=== PATIENT | female | born 1940 | race Caucasian/White ===

== ENCOUNTER 2016-10-16 07:53 | Outpatient (CLI) | payer MEDICARE, OTHER ==
[~2016-10-16] VITALS: Ht 167.6 cm; Wt 53.6 kg
--- NOTE | ~2016-10-16 | OP ---
PATIENT NAME: YUDY STUBBS MEDICAL RECORD: [id number] :38 LOCATION:D.CAT ADMISSION DATE: SURGEON: SANDRINE LOFTON MD DATE OF OPERATION: 10/16/2016 PROCEDURES: 1. Stent placement SFA, left. 2. FORKLIFT TRUCK OPERATOR SFA, left. 3. Aortofemoral runoff. 4. Abdominal aortography. INDICATION: Claudication and peripheral vascular disease. PROCEDURE IN DETAIL: After informed consent was obtained and after a detailed explanation of the risks, benefits as well as alternative therapies, the patient elected to proceed with angiogram and angioplasty. The right femoral area was prepped and draped in normal sterile fashion. The right femoral artery was cannulated via modified Seldinger technique with placement of a 6-Welsh lhckbg-yow-fyhf sheath. All catheters exchanged through this sheath. FINDINGS: Abdominal aortography was performed. The catheter was pulled down for aortofemoral runoff. Abdominal aortography reveals no significant abdominal aortic ____ no renal artery stenosis. RIGHT SIDE: A. Iliac: The common internal and external iliacs have moderate irregularities, but no flow-limiting stenosis. B. Femoral system: The common superficial and deep femoral have moderate irregularities, but no flow-limiting stenosis. C. Popliteal and infrapopliteal vessels are patent with good 3-vessel runoff to the foot. LEFT SIDE: A. The common internal and external iliacs have mild irregularities, but no flow-limiting stenosis. B. Femoral system: The common and deep femoral are widely patent. The superficial femoral has a 70+ percent stenosis in the mid distal vessel, otherwise only mild irregularities. C. Popliteal and infrapopliteal vessels: The popliteal is widely patent. 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 FORKLIFT TRUCK OPERATOR STENT OF THE LEFT SFA. The balloon used was 640 balloon. This yielded suboptimal result with severe intimal dissection. Stenting was undertaken with a 7 x 40 SMART stent. Result was 0% residual stenosis. No angiographic evidence of dissection or thrombus with confucianism of brisk distal flow. IMPRESSION: Successful percutaneous transluminal angioplasty stent of the left superficial femoral artery going from 70+ percent initial stenosis to 0% residual. TRANSINT:[id number] Voice Confirmation ID: [id number] DOCUMENT ID: [id number] OPERATIVE REPORT [id number] YUDY STUBBS JEFFREY MD CC: [id number] DICTATION DATE: 10/16/16 1200 EMBLEM CUTTER: 10/16/162121 DEP CLI 10/16/16 [address] [address] [place] [address]
--- NOTE | ~2016-10-16 | HEMODYNAMI ---
PATIENT:YUDY STUBBS MEDICAL RECORD: [id number] : 38 LOCATION:DVIV ADMISSION DATE: 10/16/16 Generatedon:10/16/201612:02 Patient name: YUDY STUBBS Patient #: [id number] SSN: [id number] : 1940 Date of study: 10/16/2016 Page: Of Hemodynamic Procedure Report Patient Data Patient Demographics Procedure consent was obtained First Name: YUDY Gender: Female Last Name: ENOC : 1940 Patient #: [id number] Age: 75 year(s) Race: SSN: [id number] Additional ID: [id number] Contact details Address: [address] [address] State: [place] City: [place] Zip code: [address] Admission Admission Data Admission Date: 10/16/2016 Admission Time: 7:53 Arrival Date: 10/16/2016 Arrival Time: 10:00 Admit Source: Other Insurance Payor: Medicare Height (in.): 66 BSA: 1.59 (m2) Height (cm.): 167.64 BMI: 18.88 (kg/m2) Weight (lbs.): 117 Weight (kg.): 53.07 Lab Results Lab Result Date: 10/16/2016 Lab Result Time: 0:00 Biochemistry Name Units Result Min Max BUN mg/dl 19 --(----)*- 7 18 Creatinine mg/dl 0.8 --(-*--)-- 0.6 1.3 CBC Name Units Result Min Max Hemoglobin g/dl 13.6 --(*---)-- 13.5 17.5 Procedure Procedure Types Cath Procedure Miscellaneous Procedures Moderate Sedation up to 30 minutes Peripheral Cath Diagnostic Procedure Cath Peripheral Cphyj-Xxfwywy-Ene-Off Peripheral vascular Intervention Stent Stent-Fem/Popw/plasty Procedure Description Procedure Date Procedure Date: 10/16/2016 Procedure Start Time: 11:33 Procedure End Time: 11:59 Procedure Staff Name Function Noe Head MD Performing Physician Maribell Pantoja RN Nurse Mary Murillo RT Monitor Kelli Bateman RT Scrub Procedure Data Cath Procedure Fluoroscopy Diagnostic fluoroscopy Total fluoroscopy Time: 6.6 time: 6.6 min min Diagnostic fluoroscopy Total fluoroscopy dose: 123 dose: 123 mGy mGy Contrast Material Contrast Material Type Amount (ml) Isovue 370 77 Entry Location Entry Primary Successful Side Size Upsize Upsize Entry Closure Succes sful Closure Location (Fr) 1 (Fr) 2 (Fr) Remarks Device Remarks Femoral Left 5 Fr Exoseal artery Femoral Right 6 Fr 6 Fr 6 Fr Vascade artery Short Long Short Closure System Estimated blood loss: 5 ml Diagnostic catheters Device Type Used For End Catheter Placement Cordis Tempo 5Fr UF Multi-vessel catheter Angiography Diagnostic 5Fr IMT Multi-vessel Catheter Angiography Procedure Complications No complications Procedure Medications Medication Administration Route Dosage Oxygen NC 2 l/min Lidocaine 2% added to field 20 Heparin Flush Bag added to field 2 bags (1000units/500ml NS) 0.9% NaCl I.V. 100 ml/hr Versed I.V. 1 mg Fentanyl I.V. 50 mcg Versed I.V. 0.5 mg Fentanyl I.V. 25 mcg Heparin Bolus I.V. 4000 units Integrilin (Bolus I.V. 5 ml 2mg/ml) Plavix P.O. 600 mg Hemodynamics Rest BSA: 1.59 (m2) HGB: 13.6 (g/dl) O2 Consumption: Estimated: 139.74 (ml/min) O2 Co nsumption indexed: Estimated:87.89 (ml/min/m) Heart Rate: 63 (bpm) Snapshots Pre Cath Intra NCS Post Cath Vital Signs Time Heart Resp SPO2 etCO2 [id number] NIBP (mmHg) Rhythm Pain Sedation Rate (ipm) (%) (mmHg) (mmHg) Status Level (bpm) 11:18:29 65 20 96 0 0 142/78(119) NSR 0 (11) 10(A) , No pain 11:22:47 56 21 99 0 0 136/68(111) NSR 0 (11) 10(A) , No pain 11:27:03 56 20 98 0 0 141/68(87) NSR 0 (11) 10(A) , No pain 11:31:21 60 18 97 0 0 123/64(95) NSR 0 (11) 10(A) , No pain 11:35:35 64 19 99 0 0 113/61(90) NSR 0 (11) 9(A) , No pain 11:39:45 63 19 99 0 0 116/59(95) NSR 0 (11) 9(A) , No pain 11:43:55 62 18 99 0 0 118/63(98) NSR 0 (11) 9(A) , No pain 11:48:07 61 17 99 0 0 116/59(87) NSR 0 (11) 9(A) , No pain 11:52:19 62 20 99 0 0 118/55(87) NSR 0 (11) 9(A) , No pain 11:56:31 61 17 99 0 0 112/60(97) NSR 0 (11) 10(A) , No pain Medications Time Medication Route Dose Verified Delivered Reason Notes Effectiveness by by 11:23:49 Oxygen NC 2 Noe Buffie used for l/min Adilene Pantoja RN procedure 11:23:55 Lidocaine 2% added 20ml Noe Noe for local to vial Adilene Head MD anesthetic field 11:24:01 Heparin Flush added 2 Noe Noe used for Bag to bags Adilene Head MD procedure (1000units/500ml field NS) 11:24:12 0.9% NaCl I.V. 100 Noe Buffie used for ml/hr Adilene Pantoja RN procedure 11:26:20 Versed I.V. 1 mg Noe Dineroie for sedation Adilene Pantoja RN 11:26:26 Fentanyl I.V. 50 Noe Buffie for sedation mcg Adilene Pantoja RN 11:37:02 Versed I.V. 0.5 Noe Buffie for sedation mg Adilene Pantoja RN 11:37:16 Fentanyl I.V. 25 Noe Buffie for sedation mcg Adilene Pantoja RN 11:45:57 Heparin Bolus I.V. 4000 Noe Buffie for verifi ed units Adilene Pantoja RN anticoagulation with dr head 11:46:47 Integrilin I.V. 5 ml Noe Buffie for Wasted 5 (Bolus 2mg/ml) Adilene Pantoja RN antiplatelet ml of therapy vial 12:01:20 Plavix P.O. 600 Noeyenny enamorado Tauth MD Pantoja RN antiplatelet therapy Procedure Log Time Note 11:00:31 Maribell Pantoja RN sent for patient. Start room use. 11:08:14 Informed consent obtained and on chart 11::22 Diagnostic Cath Status : Elective 11::38 Time tracking: Regular hours 11:09:43 Plan of Care:Hemodynamics will remain stable., Cardiac rhythm will remain stable., Comfort level will be maintained., Respiratory function will remain adequate., Patient/ family verbilizes understanding of procedure., Procedure tolerated without complication., Recovers from procedure without complications.. 11:09:48 Patient received from Pre/Post Procedure Room to CCL 1 Alert and oriented. Tansferred to table in Supine position. 11:09:49 Warm blankets applied, and penny hugger turned on for patient comfort. 11:09:50 Correct patient and procedure confirmed by team. 11:09:50 ECG and BP/O2 sat monitors applied to patient. 11:17:13 Vital chart was started 11:17:15 Baseline sample Acquired. 11:17:20 Rhythm: sinus rhythm 11:17:22 Full Disclosure recording started 11:17:35 H&P Date Dictated: 10/10/2016 Within 30 days and on chart., H&P Addendum completed by physician on day of procedure. (MUST COMPLETE FOR ALL OUTPATIENTS). 11:17:36 Pre-procedure instructions explained to patient. 11:17:36 Pre-op teaching completed and patient verbalized understanding. 11:17:38 Family in waiting room. 11:17:39 Patient NPO since Midnight. 11:17:47 Is the patient allergic to Iodine/contrast media? No. 11:17:48 Was the patient premedicated? No 11:21:57 Is patient on blood thinner?No 11:21:58 Patient diabetic? No. 11:22:35 Previous problem with sedation/anesthesia? No ? 11:22:37 Snore? No 11:22:39 Sleep apnea? No 11:22:40 Deviated septum? No 11:22:41 Opens mouth fully? Yes 11:22:41 Sticks out tongue? Yes 11:22:43 Airway obstruction? No ? 11:22:46 Dentures? No ? 11:22:50 Pre procedure: right dorsailis pedis pulse 1+ Palpable, but thready & weak; easily obliterated 11:22:55 Patient pain scale 0/10 ?. 11:23:01 IV patent on arrival in left forearm with 0.9% NaCl at [facility]. 11::24 Lab Result : Creatinine 0.8 mg/dl 11::24 Lab Result : BUN 19 mg/dl 11::24 Lab Result : Hemoglobin 13.6 g/dl 11::28 Lab results completed and on chart. 11:23:33 Bilateral groins area was prepped with chlora-prep and draped in sterile fashion 11::35 Alarms reviewed by R. N. 11::36 Sharps counted by scrub and verified by R.N. 11::37 Physician arrived 11::38 --------ALL STOP TIME OUT------ :38 Final Timeout: patient, procedure, and site verified with staff and physician. All members of the team are in agreement. 11:23:40 Bilateral groins site verified by team. 11::43 Physical assessment completed. ASA score P 2 - A patient with mild systemic disease as per Noe Head MD. 11:23:46 Sedation plan: IV Moderate Sedation Versed, Fentanyl 11::49 Oxygen 2 l/min NC was administered by Maribell Pantoja RN; used for procedure; ::55 Lidocaine 2% 20ml vial added to field was administered by Noe Head MD; for local anesthetic; 11:24:01 Heparin Flush Bag (1000units/500ml NS) 2 bags added to field was administered by Noe Head MD; used for procedure; 11:24:04 Use device set Femoral Dx 11:24:05 Acist Syringe opened to sterile field. 11:24:06 Bag Decanter opened to sterile field. 11:24:06 Medline Cath Pack opened to sterile field. 11:24:07 Terumo 5Fr [place] Sheath opened to sterile field. 11:24:08 St Vinay 260cm J .035 wire opened to sterile field. 11:24:09 Acist Hand Control opened to sterile field. 11:24:09 Acist Manifold opened to sterile field. 11:24:10 Tegaderm 4 x 4 opened to sterile field. 11:24:12 0.9% NaCl 100 ml/hr I.V. was administered by Buffie Pantoja RN; used for procedure; 11:26:20 Versed 1 mg I.V. was administered by Maribell Pantoja RN; for sedation; 11::26 Fentanyl 50 mcg I.V. was administered by Maribell Pantoja RN; for sedation; 11:29:00 Admit Source: Other 11::07 Arrival Date: 10/16/2016 10:00:00 AM 11:29:15 Insurance Payor : Medicare 11:29:27 Patient Height : 66 cm 11:29:33 Patient Weight : 117 kg 11:29:45 Zero performed for pressure channel P1 11:31:25 Baseline sample Acquired. 11:32:33 Procedure started. 11:33:12 Local anesthetic to left femerol artery with Lidocaine 2% by Noe Head MD.INITIAL ACCESS ONLY 11:33:26 A 5 Fr sheath was inserted into the Left Femoral artery 11:34:39 A Cordis Tempo 5Fr UF catheter was advanced over the wire and used for Multi-vessel Angiography. 11:35:57 Abdominal angiogram w/ runoff was performed. 11:36:12 Terumo ANGLED SS 260CM glide wire opened to sterile field. 11:36:51 A Diagnostic 5Fr IMT Catheter was advanced over the wire and used for Multi-vessel Angiography. 11:37:02 Versed 0.5 mg I.V. was administered by Maribell Pantoja RN; for sedation; 11:37:09 glide wire advanced. 11:37:16 Fentanyl 25 mcg I.V. was administered by Maribell Pantoja RN; for sedation; 11:37:57 Right leg runoff performed. 11:38:20 Catheter removed. 11:38:57 Cordis 5Fr Exoseal opened to sterile field. 11:39:15 Terumo 6Fr [place] Sheath opened to sterile field. 11:39:32 Sheath removed intact; hemostasis achieved with Exoseal to the Left Femoral artery. 11:40:15 Terumo TORQUE DEVICE PLASTIC .038 opened to sterile field. 11:40:32 Local anesthetic to right femoral artery with Lidocaine 2% by Noe Head MD.ADDITIONAL ACCESS 11:40:45 A 6 Fr Short sheath was inserted into the Right Femoral artery 11:44:24 Terumo 6Fr [place] Destination Sheath opened to sterile field. 11:44:38 Sheath upsized to a 6 Fr Long. 11:45:25 Merit BasixCompak Inflation Kit opened to sterile field. 11:45:57 Heparin Bolus 4000 units I.V. was administered by Maribell Pantoja RN; for anticoagulation; verified with dr head 11:46:47 Integrilin (Bolus 2mg/ml) 5 ml I.V. was administered by Maribell Pantoja RN; for antiplatelet therapy; Wasted 5 ml of vial 11:46:53 glide wire advanced. 11:49:47 Inflation number: 1 A Cordis Powerflex Pro 6.0 x 40 x 135cm balloon was prepped and advanced across the Mid Superficial Femoral, Left, then inflated to 5 TAMIA for 0:10 (min:sec). 11:50:16 Balloon removed over the wire. 11:51:43 Cordis SMART 7 X 40 X 120 stent was deployed across Mid Superficial Femoral, Left . 11:51:50 Stent catheter was removed intact over wire. 11:52:21 Inflation number: 2 The Cordis Powerflex Pro 6.0 x 40 x 135cm balloon was reinflated across the Mid Superficial Femoral, Left, to 9 TAMIA for 0:10 (min:sec). 11:52:54 Inflation number: 3 The Cordis Powerflex Pro 6.0 x 40 x 135cm balloon was reinflated across the Mid Superficial Femoral, Left, to 7 TAMIA for 0:10 (min:sec). 11:55:18 Balloon removed over the wire. 11:56:01 Vascade 6/7 Fr Closure Device opened to sterile field. 11:56:23 Wire removed. 11:56:28 Sheath upsized to a 6 Fr Short. 11:57:09 Sheath removed intact; hemostasis achieved with Vascade Closure System to the Right Femoral artery. 11:57:11 Procedure ended.(Physican Out) 11:57:21 Fluoroscopy time 06.60 minutes. 11:57:25 Fluoroscopy dose: 123 mGy 11:57:25 Flurop Dose total: 123 11:57:31 Contrast amount:Isovue 370 77ml. 11:57:46 Sharps counted by scrub and verified by R.N. 11:57:47 Insertion/operative site no bleeding no hematoma. 11:57:53 Post-op/insertion site Right Femoral artery dressed using a 4 x 4 and Tegaderm. 11:57:57 Post right femoral artery:stable 11:57:58 Post Procedure Pulses reassessed and unchanged 11:58:02 Post procedure rhythm: unchanged. 11:58:07 Estimated blood loss: 5 ml 11:58:09 Post procedure instruction explained to patient.Patient verbalizes understanding. 11:58:09 Patient needs reinforcement of post procedure teaching. 11:58:41 Procedure type changed to Cath procedure, Miscellaneous Procedures, Moderate Sedation up to 30 minutes, Peripheral Cath Diagnostic Procedure, Cath Peripheral, Mabji-Gwfhayw-Nxc-Off, Peripheral vascular Intervention, Stent, Stent-Fem/Popw/plasty 11:58:42 Procedure and supply charges have been captured, reviewed, submitted and are correct. 11:58:47 Procedure Complication : No complications 11:58:51 Vital chart was stopped 11:58:51 See physician's report for complete and final results. 11:58:57 Report given to Pre/Post Procedure Room. 11:59:00 Patient transfered to Pre/Post Procedure Room with Stretcher. 11:59:02 Procedure ended. 11:59:02 Full Disclosure recording stopped 11:59:09 ACC-PCI Only Patient was given prescriptions, or instructed by Noe Head MD to start/continue the following medications upon discharge: Plavix 11:59:12 End room use (Document Last) 12:01:20 Plavix 600 mg P.O. was administered by Maribell Pantoja RN; for antiplatelet therapy; Intervention Summary Intervention Notes Time ActionType Lesion and Equipment Action# Pressure Duration Attributes Used 11:49:47 Inflate Mid Cordis 1 5 00:10 balloon Superficial Powerflex Femoral, Pro 6.0 x Left 40 x 135cm balloon 11:51:43 Deploy self Mid Cordis 1 expanding Superficial SMART 7 X stent Femoral, 40 X 120 Left stent 11:52:21 Reinflate Mid Cordis 2 9 00:10 balloon Superficial Powerflex Femoral, Pro 6.0 x Left 40 x 135cm balloon 11:52:54 Reinflate Mid Cordis 3 7 00:10 balloon Superficial Powerflex Femoral, Pro 6.0 x Left 40 x 135cm balloon Device Usage Item Name Manufacture Quantity Catalog Number Hospital Part Current Minim al Lot# / Charge Number Stock Stock Serial# Code Acist Acist 1 [id number] 484804 933076 987448 20 [employer] Bag Microtek 1 2002S 279405 76250 811951 5 Context app. Medline Cardinal 1 [id number] 986977 70983 170939 5 Cath Pack Health Terumo 5Fr Terumo 1 [id number] 496119 641524 608079 [address] Vin[address] St Vinay 1 244999 756327 602244 259101 30 260cm J .035 wire Acist Hand Acist 1 53795 899663 781445 389487 5 Control Medical Systems Inc Acist Acist 1 11406 460564 470615 882698 5 Manifold Medical Systems Inc Tegaderm 4 3M 1 1626W 304847 524370 324200 5 x 4 Cordis Cardinal 1 [id number] 711044 155292 261314 10 Tempo 5Fr Health UF catheter Terumo Terumo 1 [id number] 628562 883390 420837 [address] SS 260CM glide wire Diagnostic [place] 1 [id number] 636062 366020 50916 5 5Fr IMT Scientific Catheter Cordis 5Fr Cardinal 1 EX500 948053 054241 951638 10 Exoseal Health Terumo 6Fr Terumo 1 [id number] 503680 260843 884115 40 [place] Sheath Terumo [place] 1 TD01 342057 748626 147283 5 TORQUE Scientific DEVICE PLASTIC .038 Terumo 6Fr Terumo 1 RSR01 849904 99937 921766 5 [place] Destination Sheath [facility] Merit 1 [id number] 831437 873057 557701 15 [facility]-goodS[facility] Treatment CenterCountdown Medical Inflation Kit Cordis Cardinal 1 [id number] 213172 405549 676424 5 Powerflex Health Pro 6.0 x 40 x 135cm balloon Cordis Cardinal 1 [id number] 060457 0 [id number] SMART 7 X Health 40 X 120 stent Vascade 6/7 Cardiva 1 [id number] 116485 147769 855692 5 Fr Closure Medical, Device Inc. Signature Audit [place] Stage Time Signature Unsigned Intra-Procedure 10/16/2016 Mary Murillo 12:02:24 PM RT(R) Signatures Monitor : Mary Murillo RT Signature : Date : Time : [facility] [address] [place] [address]
[~2016-10-16 07:53] MED LIST: ASPIRIN 81 MG E81 MG PO; PLAVIX75 MG PO; PRAVACHOL40 MG PO
[2016-10-16] MEDS ORDERED: SINEMET 25-1001 EACH PO (08:11)
[2016-10-16 08:13] VITALS: BP 134/79; Ht 167.6 cm; Wt 53.6 kg
[2016-10-16 08:33] LABS: BASOPHILS 0.6 % (0.0-2.0); EOSINOPHILS 1.1 % (0-7); HEMATOCRIT 42.4 % (36.0-48.0); HEMOGLOBIN 13.6 g/dL (12-16); IMMATURE GRANULOCYTES 0.1 % (0-5); LYMPHOCYTES 26.4 % (15-50); MCH 30.8 pg (26.0-34.0); MCHC 32.1 g/dL (31.0-37.0); MCV 95.9 fL (80.0-100.0); MONOCYTES 5.7 % (2-11); NEUTROPHILS 66.1 % (40-80); PLATELET COUNT 205 10x3/uL (130-400); RBC 4.42 10x6/uL (4.00-5.40); RDW 13.3 % (11.5-14.5)
[2016-10-16 08:40] LABS: ANION GAP 12.8 mmol/L (8-16); CALCIUM 8.9 mg/dL (8.5-10.1); CREATININE - SERUM 0.8 mg/dL (0.6-1.3); POTASSIUM - SERUM 3.8 mmol/L (3.5-5.1)
--- NOTE | 2016-10-16 12:29 | NUR ---
1215 RECEIVED PT FROM CAMPUS POLICE OFFICER. PT IS VERY DROWSY, DENIES ANY C/O PAIN OR DISCOMFORT. SINUS RHYTHM, RATE IS 67. DRESSING TO RIGHT GROIN IS CDI, NO BLEEDING OR HEMATOMA NOTED. PEDAL PULSES PALPABLE. LEFT GROIN WITH SMALL HEMATOMA NOTED. CAMPUS POLICE OFFICER STAFF HERE AND APPLIED FEMSTOP. PEDAL PULSES PALPABLE. ON O2 AT 2 LPM VIA NC. INSTRUCTED PT TO KEEP HEAD TO PILLOW AND BOTH LEGS STRAIGHT. PT VERBALIZES UNDERSTANDING. AT BEDSIDE. CALL LIGHT IN REACH.
[2016-10-16] MEDS ORDERED: PLAVIX75 MG PO (12:38)
--- NOTE | 2016-10-16 12:38 | NUR ---
1230 PT VERY DROWSY, VSS, DENIES ANY C/O. PEDAL PULSES PALPABLE, DRESSINGS TO BILAT GROINS ARE CDI. FEMSTOP TO LEFT GROIN. FAMILY AT BEDSIDE.
--- NOTE | 2016-10-16 12:43 | NUR ---
1245 PT DENIES ANY C/O. DRESSINGS TO BIALT GROINS ARE CDI, NO HEMATOMA NOTED TO RIGHT GROIN, FEMSTOP IN PLACE TO LEFT GROIN FOR SMALL HEMATOMA. PEDAL PULSES PALPABLE. CALL LIGHT IN REACH. NO FAMILY AT BEDSIDE.
--- NOTE | 2016-10-16 14:14 | NUR ---
1400 AT BEDSIDE. PT DENIES NEEDS. HAVE OFFERED PO FLUIDS MULTIPLE TIMES AND PT REFUSES. DRESSINGS TO BILAT GROINS CDI, AREAS SOFT. PEDAL PULSES PALPABLE. CALL LIGHT IN REACH.
--- NOTE | 2016-10-16 14:22 | NUR ---
1425 PT DENIES ANY C/O. DRESSING TO BILAT GROIN IS CDI, NO BLEEDING OR HEMATOMA NOTED. PEDAL PULSES PALPABLE. AT BEDSIDE. CALL LIGHT IN REACH.
--- NOTE | 2016-10-16 15:01 | NUR ---
1500 PT DENIES ANY C/O, DRESSINGS TO BILAT GROINS ARE CDI, NO BLEEDING OR HEMATOMA NOTED. PEDAL PULSES PALPABLE. CALL LIGHT IN REACH, AT BEDSIDE.
--- NOTE | 2016-10-16 16:32 | NUR ---
1550 IV DC'D WITH CATH INTACT. ASSISTED PT WITH DRESSING FOR DC TO HOME. ASSISTED PT TO BATHROOM, PT VOIDED QS. 1610 REVIEWED DC INSTRUCTIONS WITH PT WHO VERBALIZES UNDERSTANDING. PT ESCORTED TO PRIVATE AUTO VIA WC BY STAFF WITH DRIVING HER HOME. DRESSINGS TO BILAT GROINS REMAIN CDI, WITH NO BLEEDING OR HEMATOMA NOTED.
== END 2016-10-16 16:10 | disposition home or self-care (01) ==
LOC: D.CATH 07:53
PROVIDERS: Internal Medicine Interventional Cardiology
DX: I70.212 Atherosclerosis of native arteries of extremities with intermittent claudication, left leg (principal)